=== PATIENT | female | born 1970 | race Caucasian/White ===

== ENCOUNTER → 2024-12-17 | Day surgery (SDC) | payer MEDICAID ==
[~2024-12-17] VITALS: Ht 170.2 cm; Wt 79.8 kg
[~2024-12-17] MED LIST: AMLO5TAB88 PO; ATOR10TA69 PO; FENTANYL CITRATE/PF 50MCG/ML 2ML VIAL ONE; LOSA50TA41 PO; MIDAZOLAM HCL 2 MG/2 ML VIAL ONE; MITOMYCIN 0.2 MG KIT OP ONE; NINT150C PO; ONDANSETRON HCL 4MG/2ML INJ IV PRN; PROPOFOL 200MG/20ML VIAL IV ONE; TRIAMCINOLONE ACETONIDE 40MG/ML 1ML VIAL ONE
[2024-12-17] MEDS: LACTATED RINGERS 1,000 ML IV SCH (10:04)
== END | disposition home or self-care (01) ==
LOC: OR 07:17
PROVIDERS: ATTEND Ophthalmology
DX: H11.001 Unspecified pterygium of right eye (principal); I10 Essential (primary) hypertension; E78.5 Hyperlipidemia, unspecified; Z79.899 Other long term (current) drug therapy; Z98.890 Other specified postprocedural states
CPT/HCPCS: 65426; 82962; J3010; J2250; J2704; J3301